=== PATIENT | male | born 1975 | race Caucasian/White ===

== ENCOUNTER 2019-07-04 20:03 | Emergency (ER) | payer OTHER ==
[~2019-07-04] VITALS: Ht 160 cm; Wt 113.0 kg
[2019-07-04] MEDS ORDERED: cloNIDine HCL 0.1 MG TABLET ONE (21:23)
[2019-07-04] MEDS ORDERED: cloNIDine TTS-2 1 PATCH PATCH TD ONE ×2 (21:23→22:30)
--- NOTE | 2019-07-04 21:29 | PHYS DOC ---
Past History Past Medical History: Hypertension Smoking: Cigarettes General Adult EDM: Chief Complaint: HYPERTENSION HPI: HPI: "..I have not been taking my meds ... for past 9 months..",," They had that notice.. that the BP meds caused cancer.. or was bad so I quit taking it... but my BP was pretty high.. when I checked it tonight...so I figured I needed to come in and gets some meds..renewed..." Patient is a 43 year old male who presents with above hx and complaints of accelerated HTN. Patient has a history of longstanding hypertension however is not taking any meds for the past 9 months. Patient denies any current symptoms, chest pain, shortness of breath, or headache. Patient does have a history of tobacco use and elevated cholesterol. Patient requesting renewal of his blood pressure meds. Patient the past is followed with [facility]. Patient currently requests be treated symptomatically and declines labs, x-rays and EKG. Review of Systems: Review of Systems: Constitutional: Denies fever or chills Eyes: Denies change in visual acuity HENT: Denies nasal congestion or sore throat Respiratory: Denies cough or shortness of breath Cardiovascular: Denies chest pain or edema GI: Denies abdominal pain, nausea, vomiting, bloody stools or diarrhea : Denies dysuria Musculoskeletal: Denies back pain or joint pain Integument: Denies rash Neurologic: Denies headache, focal weakness or sensory changes Endocrine: Denies polyuria or polydipsia Lymphatic: Denies swollen glands Psychiatric: Denies depression or anxiety Heart Score: Risk Factors: Risk Factors: DM, Current or recent (<one month) smoker, HTN, HLP, family history of CAD, obesity. Risk Scores: Score 0 - 3: 2.5% MACE over next 6 weeks - Discharge Home Score 4 - 6: 20.3% MACE over next 6 weeks - Admit for Clinical Observation Score 7 - 10: 72.7% MACE over next 6 weeks - Early Invasive Strategies Family History: Family History: Hypertension Current Medications: Current Meds: See nursing for home meds Allergies: Allergies: No known drug allergies Physical Exam: PE: Constitutional: no acute distress, non-toxic appearance. [] HENT: Normocephalic, atraumatic, bilateral external ears normal, oropharynx moist, no oral exudates, nose normal. [] Eyes: PERRLA, EOMI, conjunctiva normal, no discharge. [] Neck: Normal range of motion, no tenderness, supple, no stridor. Neck circumference more than 17 inches Cardiovascular:Heart rate regular rhythm, no murmur [] Lungs & Thorax: Bilateral breath sounds equal at apex with a few scattered wheezes on auscultation [] Abdomen: Bowel sounds normal, soft, no tenderness, no masses, no pulsatile masses. Obese. Skin: Warm, dry, no erythema, no rash. [] Back: No tenderness, no CVA tenderness. [] Extremities: No tenderness, no cyanosis, no clubbing, ROM intact, no edema. [] Neurologic: Alert and oriented X 3, normal motor function, normal sensory function, no focal deficits noted. [] Psychologic: Affect anxious l, judgement normal, mood normal. [] EKG: EKG: Patient declines EKG at this time [] Radiology/Procedures: Radiology/Procedures: Patient declines x-ray [] Course & Med Decision Making: Course & Med Decision Making Pertinent Labs and Imaging studies reviewed. (See chart for details) Patient received clonidine patch 0.2 and oral tab. 0.1 x 3. Patient issued 2 tablets of Norvasc 5 mg. Patient to take these tablets at home when he goes to sleep.. Patient to check his blood pressure in the morning and document reading. Remove clonidine patch if hypotensive. Rx given prior BP med Amlodipine/Valsartan. Pt. must follow up with primary. Keep record of BP in morning and show to primary on follow up. Impression: 1. Accelerated HTN 2. Tobacco Use [] Dragon Disclaimer: Khalif Disclaimer: This electronic medical record was generated, in whole or in part, using a voice recognition dictation system. Departure Departure: Disposition: 01 HOME/RESIDENCE PRIOR TO ADM Condition: STABLE Referrals: GINO GALICIA (PCP) Scripts Amlodipine/Valsartan (Amlodipine-Valsartan 10-320 mg) 1 Each Tablet 1 TAB PO DAILY for HTN for 30 Days, #30 TAB 0 Refills Prov: TAINA MUKHERJEE MD 07/04/19 Khalif Disclaimer This chart was dictated in whole or in part using Voice Recognition software in a busy, high-work load, and often noisy Emergency Department environment. It may contain unintended and wholly unrecognized errors or omissions. Dragon Disclaimer This chart was dictated in whole or in part using Voice Recognition software in a busy, high-work load, and often noisy Emergency Department environment. It may contain unintended and wholly unrecognized errors or omissions. TAINA MUKHERJEE MD July 04, 2019 21:29
[2019-07-04] MEDS ORDERED: cloNIDine TTS-1 1 PATCH PATCH TD SCH (21:45)
[2019-07-04] MEDS ORDERED: cloNIDine HCL 0.1 MG TABLET PO ONE ×2 (22:30)
[2019-07-04] MEDS ORDERED: AMLO-310 PO (23:10)
[2019-07-04 23:30] VITALS: BP 161/99
[2019-07-04] MEDS ORDERED: amLODIPine BESYLATE 5 MG TABLET PO ONE (23:30)
== END 2019-07-05 00:02 | disposition home or self-care (01) ==
LOC: ER 20:03
DX: I10 Essential (primary) hypertension (principal); F17.210 Nicotine dependence, cigarettes, uncomplicated
CPT/HCPCS: 99284

== ENCOUNTER 2020-04-02 17:18 | Inpatient (IN) | payer OTHER ==
[~2020-04-02] VITALS: Ht 167.6 cm; Wt 106.1 kg
[~2020-04-02 17:18] MED LIST: AMLO-310 PO
--- NOTE | 2020-04-02 17:30 | PHYS DOC ---
Past History Past Medical History: Hypertension Additional Past Medical Histor: electrocuded (GAUTAM JOEL APRN) Past Surgical History: Other Additional Past Surgical Histo: bilateral foot skin grats (GAUTAM JOEL APRN) Smoking: Cigarettes Alcohol Use: Occasionally (GAUTAM JOEL APRN) Adult General Chief Complaint Chief Complaint: CHEST PAIN HPI HPI Patient is a 44-year-old male presents to the emergency department stating he went to see his doctor today in his office for high blood pressure problems at home. Patient states his doctor did an EKG, gave him a 325 mg aspirin p.o., 10 mg amlodipine p.o., a 100 mg tablet of losartan p.o. and sent him straight to the ER. Patient denies any chest pains, shortness of breath, chest palpitat ions, nasal congestion, abdominal pain, nausea, or diarrhea. Patient denies any rashes to the skin, denies loss of taste or smell, denies fever chills, denies headaches, denies fatigue, denies body aches. Patient states he has not had his flu shot in 2019, patient states he has not had the COVID-19 virus immunization. Patient denies any COVID-19 virus symptoms. Patient states he smokes cigarettes, drinks beer every other day, does not use illicit substances or illicit drugs. Patient states he is diabetic but does not take any diabetes medicines. (GAUTAM JOEL APRN) Review of Systems Review of Systems 14 body systems of review of systems have been reviewed. See HPI for pertinent positives and negative responses, otherwise all other systems are negative, nonpertinent or noncontributory. (GAUTAM JOEL APRN) Allergies Allergies Allergies Coded Allergies Type Severity Reaction Last Updated Verified No Known Drug Allergies 07/04/19 No (GAUTAM JOEL APRN) Physical Exam Physical Exam Constitutional: Well developed, well nourished, no acute distress, non-toxic appearance. HENT: Normocephalic, atraumatic, bilateral external ears normal, oropharynx moist, no oral exudates, nose normal. Eyes: PERRLA, EOMI, conjunctiva normal, no discharge. Neck: Normal range of motion, no tenderness, supple, no stridor. Cardiovascular:Heart rate regular rhythm, systolic murmur appreciated. Lungs & Thorax: Bilateral breath sounds clear to auscultation all lung paulino. Abdomen: Bowel sounds normal, soft, no tenderness, no masses, no pulsatile masses. Skin: Warm, dry, no erythema, no rash. Back: No tenderness, no CVA tenderness. Extremities: No tenderness, no cyanosis, no clubbing, ROM intact, no edema. Neurologic: Alert and oriented X 3, normal motor function, normal sensory function, no focal deficits noted. Psychologic: Affect normal, judgement normal, mood normal. (GAUTAM JOEL APRN) EKG EKG EKG performed at 1730 by house respiratory staff, heart rate 103 bpm sinus tachycardia without other ectopy, AK interval 0.166, QTc interval 0.424, no acute STEMI, no ACS, no acute ischemia appreciated, EKG interpreted by ED attending physician Dr. Morelos. (GAUTAM JOEL APRN) Radiology/Procedures Radiology/Procedures []PATIENT: LINDA MCCAULEYOUNT: [id number]#: [id number] : 1975 LOCATION: ER AGE: 44 SEX: M EXAM STATUS: REG ER ORD. PHYSICIAN: GAUTAM JOEL APRN REASON: ABNORMAL EKG FROM PRIMARY MD OFFICE PROCEDURE: CHEST PA & LATERAL INDICATION: Reason: ABNORMAL EKG FROM PRIMARY MD OFFICE / Spl. Instructions: / History: COMPARISON: August 30, 2006 FINDINGS: Two view of chest obtained. Interstitial and groundglass opacities bilaterally. Cardiac mediastinal silhouette is prominent in size but likely exaggerated by portable technique. Degenerative changes of spine IMPRESSION: * Interstitial and groundglass opacity bilaterally which could be from bilateral interstitial infiltrate or edema. Electronically signed by: Martin Real MD (04/02/2020 5:53 PM) [id number] DICTATED AND SIGNED BY: MARTIN REAL MD DATE: 04/02/20 618 CC: GAUTAM JOEL APRN; GINO GALICIA PA ~MTH0 0 (GAUTAM JOEL APRN) Heart Score HEART Score for Chest Pain: HEART Score for Chest Pain Response (Comments) Value History Slighlty/Non-Suspicious 0 ECG Normal 0 Age >45 - < 65 1 Risk Factors 1 or 2 Risk Factors 1 Troponin < Normal Limit 0 Total 2 Risk Factors: Risk Factors: DM, Current or recent (<one month) smoker, HTN, HLP, family history of CAD, obesity. Risk Scores: Risk Factors: DM, Current or recent (<one month) smoker, HTN, HLP, family history of CAD, obesity. (GAUTAM JOEL APRN) Course & Med Decision Making Course & Med Decision Making Pertinent Labs and Imaging studies reviewed. (See chart for details) 44-year-old male, vital signs reviewed, presents to the emergency department stating he was sent here by his primary care Dr. Barbour. Patient had EKG in hand, patient states he was given blood pressure medicines and aspirin for he was sent. Dr. Barbour was nurse practitioner STRUCTURAL ANALYSIS ENGINEER Emeli contacted our ED community service specialist and advised to have patient come in for abnormal EKG and heart murmur. A cardiac work-up was initiated. Patient's physical exam unremarkable. Patient's initial blood pressure 180/104, will monitor for an hour related to patient just receiving amlodipine and losartan prior to arrival. Patient's EKG unremarkable, labs unremarkable except for blood sugar elevated at 310., blood pressure becoming normotensive, patient's chest x-ray concerning for bilateral pneumonia possible viral pneumonia. Will give 1 L normal saline IV along with 5 units regular insulin IV. Called and discussed patient case with Dr. Barbour who agreed to accept patient to [facility] for admission to the telemetry unit for the diagnosis community-acquired pneumonia, bilateral pneumonia, hypertension, tachycardia, uncontrolled diabetes mellitus, PUI. Consult cardiology. Patient was admitted to the telemetry unit to Dr. Wayne, Dr. Wayne will take over care at this time. Discussed admission with patient, patient is amenable to admission. Patient is PUI status, I were N95 mask, goggles, face shield, PPE gown, gloves, during patient contact. Patient was not in a negative pressure room. (GAUTAM JOEL APRN) Dragon Disclaimer Dragon Disclaimer This electronic medical record was generated, in whole or in part, using a voice recognition dictation system. (GAUTAM JOEL APRN) Departure Departure: Impression: Primary Impression: Community acquired pneumonia Additional Impressions: Bilateral pneumonia Tachycardia Hypertension Uncontrolled diabetes mellitus Person under investigation for COVID-19 Disposition: ADMITTED INPT THIS HOSP Admitting Physician: Naomi Jamil (Admit to telemetry unit to Dr. Barbour) (GAUTAM JOEL APRN) Condition: GUARDED Referrals: GINO GALICIA (PCP) Scripts Azithromycin (AZITHROMYCIN TABLET) 250 Mg Tablet 250 MG PO Q24H for bronchitis for 5 Days, #5 TAB Prov: NAOMI JAMIL MD 04/04/20 Glipizide (GLIPIZIDE) 5 Mg Tablet 10 MG PO BIDBFRMEAL for dm for 30 Days, #120 TAB Prov: NAOMI JAMIL MD 04/04/20 Empagliflozin (Jardiance) 10 Mg Tablet 10 MG PO DAILY for dm for 30 Days, #30 TAB Prov: NAOMI JAMIL MD 04/04/20 Metformin Hcl (GLUCOPHAGE) 500 Mg Tablet 500 MG PO BIDWMEALS for dm for 30 Days, #60 TAB Prov: NAOMI JAMIL MD 04/04/20 Metoprolol Succinate (METOPROLOL SUCCINATE ( XL )) 25 Mg Tab.er.24h 50 MG PO DAILY for htn for 30 Days, #60 TAB.SR Prov: NAOMI JAMIL MD 04/04/20 Attending Signature Attending Signature I have participated in the care of this patient and I have reviewed and agree with all pertinent clinical information above including history, exam, and recommendations. (TAINA MORELOS MD) Problem Qualifiers Primary Impression: Community acquired pneumonia Laterality: unspecified laterality Qualified Codes: J18.9 - Pneumonia, uns pecified organism Additional Impressions: Bilateral pneumonia Pneumonia type: due to unspecified organism Lung location: unspecified part of lung Qualified Codes: J18.9 - Pneumonia, unspecified organism Hypertension Hypertension type: unspecified Qualified Codes: I10 - Essential (primary) hypertension Uncontrolled diabetes mellitus Diabetes mellitus type: type 2 Glycemic state: with hyperglycemia Qualified Codes: E11.65 - Type 2 diabetes mellitus with hyperglycemia GAUTAM JOEL APRN Apr 02, 2020 17:30 TAINA MORELOS MD Apr 07, 2020 06:29
--- NOTE | 2020-04-02 17:41 | EKG ---
[address] [address] Test Date: 2020-04-02 Test Time: 17:30:02 Pat Name: EMILIANO MCCAULEY Department: Room: Gender: M Deputy Jailer: ERICK : 1975 Requested By: GAUTAM JOEL Order Number: [id number] Reading MD: Julius Lyle Measurements Intervals Cyrus Rate: 103 P: 32 NE: 166 QRS: 98 QRSD: 90 T: 33 QT: 322 QTc: 424 Interpretive Statements SINUS TACHYCARDIA Electronically Signed On 04-07-2020 9:57:08 BECK OPERATOR by Julius Lyle
[2020-04-02 17:51] LABS: BASO # 0.1 x10^3/uL (0.0-0.2); BASO % 1 % (0-3); EOS # 0.2 x10^3/uL (0.0-0.7); EOS % 2 % (0-3); HEMATOCRIT 50.1 % (39.0-53.0); HEMOGLOBIN 17.1 g/dL (13.0-17.5); LYMPH # 1.4 x10^3/uL (1.0-4.8); LYMPH % 15 % (24-48); MEAN CORPUSCULAR HEMOGLOBIN 34 pg (25-35); MEAN CORPUSCULAR HGB CONC 34 g/dL (31-37); MEAN CORPUSCULAR VOLUME 99 fL (79-100); MONO # 0.5 x10^3/uL (0.0-1.1); MONO % 6 % (0-9); NEUT # 7.2 x10^3uL (1.8-7.7); NEUT % 77 % (31-73); PLATELET COUNT 176 x10^3/uL (140-400); RED BLOOD COUNT 5.07 x10^6/uL (4.30-5.70); RED CELL DISTRIBUTION WIDTH 12.9 % (11.5-14.5); WHITE BLOOD COUNT 9.4 x10^3/uL (4.0-11.0)
--- NOTE | 2020-04-02 17:56 | RAD ---
INDICATION: Reason: ABNORMAL EKG FROM PRIMARY MD OFFICE / Spl. Instructions: / History: COMPARISON: August 30, 2006 FINDINGS: Two view of chest obtained. Interstitial and groundglass opacities bilaterally. Cardiac mediastinal silhouette is prominent in size but likely exaggerated by portable technique. Deg enerative changes of spine IMPRESSION: * Interstitial and groundglass opacity bilaterally which could be from bilateral interstitial infilt rate or edema. Electronically signed by: Stanton Real MD (04/02/2020 5:53 PM) [id number]
[2020-04-02 18:02] LABS: CALCIUM 8.9 mg/dL (8.5-10.1); CREATININE 0.8 mg/dL (0.7-1.3); GFR 104.5
[2020-04-02 18:08] LABS: ALBUMIN 3.8 g/dL (3.4-5.0); MAGNESIUM 1.7 mg/dL (1.8-2.4); TOTAL BILIRUBIN 0.7 mg/dL (0.2-1.0); TOTAL PROTEIN 7.7 g/dL (6.4-8.2)
[2020-04-02] MEDS ORDERED: IV NORMAL SALINE 1,000ML 1,000 ML IV ONE (18:30)
[2020-04-02] MEDS ORDERED: INSULIN REGULAR 100 UNIT/ML 3ML VIAL. IV ONE (18:30)
[2020-04-02] MEDS ORDERED: DEXAMETHASONE SOD PHOS 10 MG/ML VIAL. IV ONE (19:15)
[2020-04-02] MEDS ORDERED: MORPHINE SULFATE 2 MG/ML DISP.SYRIN. IVP PRN (19:15)
[2020-04-02] MEDS ORDERED: AZITHROMYCIN 500 MG in IV NORMAL SALINE 250ML 250 ML IV ONE (19:15)
[2020-04-02] MEDS ORDERED: ACETAMINOPHEN 325 MG TABLET PO PRN (19:15)
[2020-04-02] MEDS ORDERED: ONDANSETRON PF 4 MG/2 ML VIAL. IVP PRN (19:15)
[2020-04-02] MEDS ORDERED: cefTRIAXone SODIUM 1 GM VIAL ONE (19:27)
[2020-04-02] MEDS ORDERED: IV NORMAL SALINE 50ML 50 ML ONE (19:27)
[2020-04-02] MEDS ORDERED: IV NORMAL SALINE 250ML 250 ML ONE (19:27)
[2020-04-02] MEDS ORDERED: AZITHROMYCIN 500 MG VIAL. IV ONE (19:27)
[2020-04-02 21:15] VITALS: BP 147/88
--- NOTE | 2020-04-02 21:37 | NUR ---
Pt admitted to [facility] via EMS accompanied by nursing research animal facility supervisor. Pt ambulated from gurney to bed independently. VS obtained. Pt had no complaints of pain. POC discussed. Pt verbalized understanding. Call light in reach will continue to monitor.
[2020-04-03 00:23] VITALS: BP 159/85
[2020-04-03 05:47] VITALS: BP 161/77
[2020-04-03] MEDS: amLODIPine BESYLATE 10 MG TABLET PO SCH (08:03)
[2020-04-03] MEDS: LOSARTAN 50 MG TABLET. PO SCH (08:04)
[2020-04-03] MEDS: LISINOPRIL 10 MG TABLET PO SCH (08:04)
[2020-04-03] MEDS ORDERED: FLU VACC QS 2020-21(6MOS+)/PF 0.5 ML SYRINGE. VAX IM ONE (09:00)
[2020-04-03] MEDS ORDERED: metFORMIN 500 MG TABLET PO ONE (10:30)
[2020-04-03 10:40] VITALS: BP 163/72
--- NOTE | 2020-04-03 10:45 | PDOC2 ---
CONSULT DOS: DATE: 04/03/20 TIME: 10:37 Reason for Consult: Tachycardia, chest pain Referring Physician: Dr. Barbour Chief Complaint Hypertension Source: Chart review, Patient Problem List Problems Medical Problems: (1) Bilateral pneumonia Status: Acute (2) Community acquired pneumonia Status: Acute (3) Hypertension Status: Acute (4) Person under investigation for COVID-19 Status: Acute (5) Tachycardia Status: Acute (6) Uncontrolled diabetes mellitus Status: Acute History of Present Illness The patient is a 44-year-old male with a history of hypertension and diabetes. He was seen by his primary care physician yesterday and found to have elevated hypertension and it was sent to the emergency room. In the emergency room the patient's initial blood pressure was greater than 180. Also his glucose level w as greater than 300. The patient apparently has been not taking his home medications. His EKG showed a sinus rhythm with no acute ischemic changes. His chest x-ray showed bilateral interstitial opacities. He was treated for his hypertension and diabetes and was admitted. Overnight the patient has been feeling better. He is not having chest pain today and his shortness of breath has mildly improved. His heart rate has also improved and is now approximately 90 bpm. Lab testing has shown a troponin of less than 0.017, BNP of 89 and a glucose level of 310. Cardiovascular: HTN Endocrine: Diabetes Past Surgical History: Other (Skin grafting on his lower extremities.) Family History: Coronary Artery Disease Smoke: 1 pack per day ALCOHOL: occassional Current Medications Current Medications Insulin Human Regular (HumuLIN R VIAL) 5 unit 1X ONCE IV Last administered on 04/02/20at 18:45; Start 04/02/20 at 18:30; Stop 04/02/20 at 18:44; Status DC Sodium Chloride 1,000 ml @ 1,000 mls/hr 1X ONCE IV Last administered on 04/02/20at 18:45; Start 04/02/20 at 18:30; Stop 04/02/20 at 19:29; Status DC Dexamethasone Sodium Phosphate (Decadron) 10 mg 1X ONCE IV Last administered on 04/02/20at 19:31; Start 04/02/20 at 19:15; Stop 04/02/20 at 19:31; Status DC Azithromycin 500 mg/Sodium Chloride 250 ml @ 250 mls/hr 1X ONCE IV Last administered on 04/02/20at 19:31; Start 04/02/20 at 19:15; Stop 04/02/20 at 20:14; Status DC Ceftriaxone Sodium 1 gm/ Sodium Chloride 50 ml @ 100 mls/hr 1X ONCE IV Last administered on 04/02/20at 19:30; Start 04/02/20 at 19:15; Stop 04/02/20 at 19:44; Status DC Ondansetron HCl (Zofran) 4 mg PRN Q4HRS PRN IVP NAUSEA/VOMITING; Start 04/02/20 at 19:15; Stop 04/03/20 at 19:14 Morphine Sulfate (Morphine 2mg Syringe) 2 mg PRN Q2HR PRN IVP PAIN; Start 04/02/20 at 19:15; Stop 04/03/20 at 19:14 Acetaminophen (Tylenol) 650 mg PRN Q4HRS PRN PO FEVER > 100.3'F; Start 04/02/20 at 19:15; Stop 04/03/20 at 19:14 Sodium Chloride 250 ml @ As Directed STK-MED ONCE .ROUTE ; Start 04/02/20 at 19:27; Stop 04/02/20 at 19:27; Status DC Sodium Chloride 50 ml @ As Directed STK-MED ONCE .ROUTE ; Start 04/02/20 at 19: 27; Stop 04/02/20 at 19:27; Status DC Azithromycin (Zithromax) 500 mg STK-MED ONCE IV ; Start 04/02/20 at 19:27; Stop 04/02/20 at 19:27; Status DC Ceftriaxone Sodium (Rocephin) 1 gm STK-MED ONCE .ROUTE ; Start 04/02/20 at 19:27; Stop 04/02/20 at 19:27; Status DC Influenza Virus Vaccine Quadrival (Fluzone Quad [id number] Syringe) 0.5 ml ONCE ONCE VAX IM ; Start 04/03/20 at 09:00; Stop 04/03/20 at 09:01; Status DC Amlodipine Besylate (Norvasc) 10 mg DAILY PO Last administered on 04/03/20at 08:03; Start 04/03/20 at 09:00 Ceftriaxone Sodium 1 gm/ Sodium Chloride 50 ml @ 100 mls/hr Q24H IV ; Start 04/03/20 at 07:15; Stop 04/03/20 at 07:16; Status DC Azithromycin (Zithromax) 250 mg Q24H PO ; Start 04/03/20 at 18:00 Lisinopril (Prinivil) 10 mg DAILY PO Last administered on 04/03/20at 08:04; Start 04/03/20 at 09:00 Ceftriaxone Sodium 1 gm/ Sodium Chloride 50 ml @ 100 mls/hr Q24H IV ; Start 04/03/20 at 18:00 Losartan Potassium (Cozaar) 100 mg DAILY PO Last administered on 04/03/20at 08:04; Start 04/03/20 at 09:00 Metoprolol Succinate (Toprol Xl) 25 mg DAILY PO ; Start 04/04/20 at 09:00; Stop 04/03/20 at 09:46; Status DC Metoprolol Succinate (Toprol Xl) 25 mg DAILY PO ; Start 04/03/20 at 10:30 Metformin HCl (Glucophage) 500 mg 1X ONCE PO ; Start 04/03/20 at 10:30; Stop 04/03/20 at 10:31 Glipizide (Glucotrol) 5 mg BIDBFRMEAL PO ; Start 04/03/20 at 10:30 Active Scripts Active Amlodipine-Valsartan 10-320 mg (Amlodipine/Valsartan) 1 Each Tablet 1 Tab PO DAILY 30 Days Allergies: Coded Allergies: No Known Drug Allergies (Unverified , 07/04/19) General: YES: Fatigue Respiratory: YES: SOB with excertion Cardiovascular: yes: Chest Pain Physical Exam The patient was seen and evaluated. VITALS Vital Signs Date Time Temp Pulse Resp B/P (MAP) Pulse Ox O2 Delivery O2 Flow Rate FiO2 04/03/20 08:04 88 161/77 04/03/20 08:00 Room Air 04/03/20 05:47 98.2 19 95 Labs Laboratory Tests Test 04/02/20 17:32 04/03/20 07:40 04/03/20 08:50 White Blood Count 9.4 x10^3/uL (4.0-11.0) Red Blood Count 5.07 x10^6/uL (4.30-5.70) Hemoglobin 17.1 g/dL (13.0-17.5) Hematocrit 50.1 % (39.0-53.0) Mean Corpuscular Volume 99 fL (79-100) Mean Corpuscular Hemoglobin 34 pg (25-35) Mean Corpuscular Hemoglobin Concent 34 g/dL (31-37) Red Cell Distribution Width 12.9 % (11.5-14.5) Platelet Count 176 x10^3/uL (140-400) Neutrophils (%) (Auto) 77 % (31-73) Lymphocytes (%) (Auto) 15 % (24-48) Monocytes (%) (Auto) 6 % (0-9) Eosinophils (%) (Auto) 2 % (0-3) Basophils (%) (Auto) 1 % (0-3) Neutrophils # (Auto) 7.2 x10^3uL (1.8-7.7) Lymphocytes # (Auto) 1.4 x10^3/uL (1.0-4.8) Monocytes # (Auto) 0.5 x10^3/uL (0.0-1.1) Eosinophils # (Auto) 0.2 x10^3/uL (0.0-0.7) Basophils # (Auto) 0.1 x10^3/uL (0.0-0.2) Sodium Level 133 mmol/L (136-145) Potassium Level 4.0 mmol/L (3.5-5.1) Chloride Level 97 mmol/L (98-107) Carbon Dioxide Level 27 mmol/L (21-32) Anion Gap 9 (6-14) Blood Urea Nitrogen 10 mg/dL (8-26) Creatinine 0.8 mg/dL (0.7-1.3) Estimated GFR (Cockcroft-Gault) 104.5 BUN/Creatinine Ratio 13 (6-20) Glucose Level 310 mg/dL (70-99) Glucose (Fingerstick) 313 mg/dL (70-99) 223 mg/dL (70-99) Calcium Level 8.9 mg/dL (8.5-10.1) Magnesium Level 1.7 mg/dL (1.8-2.4) Total Bilirubin 0.7 mg/dL (0.2-1.0) Aspartate Amino Transf (AST/SGOT) 85 U/L (15-37) Alanine Aminotransferase (ALT/SGPT) 83 U/L (16-63) Alkaline Phosphatase 86 U/L (46-116) Troponin I Quantitative < 0.017 ng/mL (0-0.055) Total Protein 7.7 g/dL (6.4-8.2) Albumin 3.8 g/dL (3.4-5.0) Albumin/Globulin Ratio 1.0 (1.0-1.7) WT-Udf-B-Type Natriuretic Peptide 89 pg/mL (0-124) Images Chest x-ray with bilateral interstitial opacities Assessment/Plan 1. Probable pneumonia. Chest x-ray as above. Further treatment as per the primary service. Patient is also being evaluated for COVID-19. He reports feeling better today than on admission. 2. Accelerated hypertension. Patient blood pressure significantly improved on present medications. We will continue to monitor. 3. Uncontrolled diabetes. Glucose level 310 this morning. Patient has not been taking his home medications. Medications have been resumed. 4. Tachycardia. Patient's tachycardia has also improved with treatment as above. EKG shows no acute ischemic changes. He is having no chest pain this morning. Believe that once the patient has hopefully ruled out for Covid would proceed with a work-up including a probable outpatient echo and stress test. 5. Uncertain cholesterol panel. Will check lab in the morning. Thank you for allowing us to participate in the care of your patient. AB PEGUERO MD Apr 03, 2020 10:45
[2020-04-03] MEDS: glipiZIDE 5 MG TABLET PO SCH ×2 (11:46→18:14)
[2020-04-03] MEDS: METOPROLOL SUCC 24HR ER 25 MG TAB.ER.24H. PO SCH (11:46)
[2020-04-03 15:09] VITALS: BP 147/77
[2020-04-03] MEDS ORDERED: AZITHROMYCIN 250 MG TABLET. PO SCH (18:00)
[2020-04-03] MEDS ORDERED: glipiZIDE 5 MG TABLET PO ONE (19:15)
[2020-04-03 19:40] VITALS: BP 118/61
--- NOTE | 2020-04-03 20:42 | PN ---
DATE: SUBJECTIVE: A 44-year-old male admitted yesterday through the Emergency Room. The patient was having chest pain and hypertensive urgency as well as a markedly elevated blood sugar for which he does not take his diabetic pain medications. The patient notes that his blood pressure was approximately over 220/120 in the office, unable to bring it down, was brought into the Emergency Room for further evaluation. X-rays there demonstrated possible pneumonic process, bilateral interstitial infiltrates. He did run a temperature of over 100 degrees. He had failed outpatient therapy, was admitted for IV antibiotic therapy and control of his blood pressure as well as a rule out coronary artery disease high risk, also to bring down his blood sugars and try to bring these under control as well. Multiplicity of medical problems, high risk for more complications including his pneumonia; coronary artery disease; diabetes, uncontrolled, noncompliance. Plan as above. OBJECTIVE: VITAL SIGNS: His blood pressure presently 160/77, respiratory rate 20, pulse 90, afebrile. GENERAL: The patient is alert and oriented. LUNGS: Show some decreased breath sounds in the right upper lobe, otherwise unremarkable. CARDIOVASCULAR: Tachycardic. ABDOMEN: Protuberant, soft, nontender. EXTREMITIES: No clubbing, cyanosis or edema. NEUROLOGIC: Intact. Patient was seen by Cardiology. IMPRESSION AND PLAN: Blood sugars are being evaluated and make further evaluation on him as indicated for those results there. We are trying to adjust him on oral medications since he is noncompliant. He will not take injections of insulin, so we are going to try to adjust him on oral medications and give that a try as well as controlling his blood pressure and the like. NAOMI JAMIL MD DR: MANSOOR/kamlesh JOB#: [id number] / [id number]
[2020-04-03] MEDS: LACTOBACILLUS RHAMNOSUS GG 1 CAPSULE. PO SCH (21:16)
[2020-04-03 23:35] VITALS: BP 114/66
[2020-04-04 05:30] VITALS: BP 158/70
--- NOTE | 2020-04-04 06:13 | NUR ---
Pt awake all night watching television. He states he is a "night person." Pt denies pain or discomfort and has had no requests through the night. Will continue to monitor.
--- NOTE | 2020-04-04 06:30 | RAD ---
Complete abdomen ultrasound HISTORY: Elevated liver function tests. FINDINGS: Imaged pancreas, aorta and IVC are normal. The distal tail the pancreas is obscured by andres l gas shadowing. Homogeneous increased liver echogenicity likely represents advanced liver steatosis. No liver mass do cumented. There is probable hepatomegaly the right hepatic lobe has a length of 23 cm. No surface irr egularity or nodularity of the liver documented. Hepatopedal portal vein blood flow is present. No ga llstones or inflammatory changes of the gallbladder. No biliary ductal dilation common bile duct diam eter is 4 mm. Right renal length 12.4 cm. Left renal length 12.1 cm. No renal mass, calculus or hydronephrosis docu mented. Limited visualization of the spleen due to rib shadowing, splenic length of 11 cm. IMPRESSION: Hepatomegaly. Increased liver echogenicity likely represents advanced steatosis. Gallblad lee is normal. No biliary ductal dilation. See above. Electronically signed by: Matheus Stephenson MD (04/04/2020 6:27 AM) [id number]
[2020-04-04] MEDS ORDERED: glipiZIDE 5 MG TABLET PO SCH (07:30)
[2020-04-04] MEDS: LACTOBACILLUS RHAMNOSUS GG 1 CAPSULE. PO SCH (07:48)
[2020-04-04] MEDS: METOPROLOL SUCC 24HR ER 25 MG TAB.ER.24H. PO SCH (07:48)
[2020-04-04 07:49] VITALS: BP 158/70
[2020-04-04] MEDS: LOSARTAN 50 MG TABLET. PO SCH (07:49)
[2020-04-04] MEDS: LISINOPRIL 10 MG TABLET PO SCH (07:49)
[2020-04-04] MEDS: amLODIPine BESYLATE 10 MG TABLET PO SCH (07:49)
[2020-04-04] MEDS ORDERED: METOPROLOL SUCC 24HR ER 25 MG TAB.ER.24H. PO SCH (09:00)
[2020-04-04] MEDS ORDERED: metFORMIN 500 MG TABLET PO SCH (09:00)
[2020-04-04] MEDS ORDERED: METOPROLOL SUCC 24HR ER 50 MG TAB.ER.24H. PO SCH (09:00)
[2020-04-04] MEDS ORDERED: EMPAGLIFLOZIN 10 MG TABLET. PO SCH (09:00)
[2020-04-04] MEDS ORDERED: AZIT250T6 PO (09:04)
[2020-04-04] MEDS ORDERED: METF500T PO (09:04)
[2020-04-04] MEDS ORDERED: METO-239 PO (09:04)
[2020-04-04] MEDS ORDERED: GLIP5TAB10 PO (09:04)
[2020-04-04] MEDS ORDERED: EMPA10TA PO (09:04)
--- NOTE | 2020-04-04 09:36 | NUR ---
PATIENT IS DISCHARGED HOME WITH SELF CARE. PT IS GIVEN ALL DISCHARGE AND FOLLOW UP INSTRUCTIONS. IV IS REMOVED AND TELE MONITOR D/C'D. PT AMBULATED OFF OF UNIT ACCOMPANIED BY STAFF.
== END 2020-04-04 09:36 | disposition home or self-care (01) | DRG 305 ==
LOC: ER 17:18 → 1 SOUTH 18:45
PROVIDERS: ADMIT Family Medicine; ATTEND Family Medicine
DX: I16.0 Hypertensive urgency (principal); E11.65 Type 2 diabetes mellitus with hyperglycemia; F17.210 Nicotine dependence, cigarettes, uncomplicated; I10 Essential (primary) hypertension; I25.10 Atherosclerotic heart disease of native coronary artery without angina pectoris; Z20.822 Contact with and (suspected) exposure to COVID-19; Z82.49 Family history of ischemic heart disease and other diseases of the circulatory system; Z91.14 Patient's other noncompliance with medication regimen; Z91.19 Patient's noncompliance with other medical treatment and regimen
CPT/HCPCS: 36415; 71046; 76700; 80053; 80061; 82947; 83036; 83735; 83880; 84484; 85025; 90471; 90686; 93005; 96361; 96365; 96375; 99406; J0456; J0696; J1100; J1815; J7050; U0003; 99285-25; J7030